=== PATIENT | female | born 1965 | race Asian ===

== ENCOUNTER 2023-03-14 07:00 | Outpatient (CLI) | payer SELFPAY ==
--- NOTE | 2023-03-15 12:40 | XRAY Report ---
PROCEDURE: Knee 3 View LT INDICATIONS: SPRAIN OF LEFT KNEE TECHNIQUE: 3 views of the left knee(s) were acquired. COMPARISON: None. FINDINGS: Bones: No fractures or dislocations. No suspicious bony lesions. Mild tricompartmental knee joint d egeneration. Soft tissues: No knee joint effusion. No suspicious soft tissue calcifications or masses. Soft tiss ue swelling over the medial aspect of the knee. IMPRESSION: 1. No acute osseous abnormality. 2. Mild osteoarthritis. 3. Soft tissue swelling over the medial aspect of the knee. If clinical symptoms persist and there is clinical suspicion for internal derangement, consider MRI for further evaluation. Reviewed by: Caitlyn Ladd MD on 03/15/2023 12:38 PM PDT Approved by: Caitlyn Ladd MD on 03/15/2023 12:38 PM PDT Station ID: [id number]
== END 2023-03-14 23:59 | disposition home or self-care (01) ==
LOC: DI.S 07:00
PROVIDERS: ATTEND Physician Assistant
DX: M17.11 Unilateral primary osteoarthritis, right knee (principal); R22.42 Localized swelling, mass and lump, left lower limb